=== PATIENT | male | born 1985 | race African-American/Black ===

== ENCOUNTER 2016-10-20 10:57 | Emergency (ER) | payer OTHER ==
[2016-10-20 14:36] LABS: MEAN CORPUSCULAR HEMOGLOBIN 29.6 pg (27.0-33.0); MEAN CORPUSCULAR HGB CONC 33.2 g/dl (32.0-36.5); MEAN CORPUSCULAR VOLUME 89.3 fl (80.0-96.0); RED CELL DISTRIBUTION WIDTH 13.7 % (11.5-14.5); WHITE BLOOD COUNT 7.7 K/mm3 (4.0-10.0)
[2016-10-20 14:56] LABS: ALBUMIN 3.9 GM/DL (3.2-5.2); ALBUMIN/GLOBULIN RATIO 1.11 (1.00-1.93); ALKALINE PHOSPHATASE 72 U/L (45-117); ALT/SGPT 25 U/L (12-78); ANION GAP 12 MEQ/L (8-16); AST/SGOT 19 U/L (15-37); BILIRUBIN,DIRECT 0.2 MG/DL (0.0-0.2); BILIRUBIN,TOTAL 0.5 MG/DL (0.2-1.0); BLOOD UREA NITROGEN 11 MG/DL (7-18); CALCIUM LEVEL 8.7 MG/DL (8.5-10.1); CARBON DIOXIDE LEVEL 28 MEQ/L (21-32); CHLORIDE LEVEL 102 MEQ/L (98-107); CREATININE FOR GFR 0.93 MG/DL (0.70-1.30); GLOMERULAR FILTRATION RATE > 60.0 (>60); GLUCOSE, FASTING 78 MG/DL (70-105); POTASSIUM SERUM 3.8 MEQ/L (3.5-5.1); SODIUM LEVEL 142 MEQ/L (136-145); TOTAL PROTEIN 7.4 GM/DL (6.4-8.2)
[2016-10-20 15:44] LABS: AMPHETAMINES LEVEL URINE NEGATIVE (NEGATIVE); BENZODIAZEPINES URINE POSITIVE (NEGATIVE); COCAINE METABOLITE URINE NEGATIVE (NEGATIVE); CONTROL LINE INT CTR LINE PRESENT; METHADONE URINE NEGATIVE (NEGATIVE); OPIATES URINE NEGATIVE (NEGATIVE); TRICYCLIC ANTIDEPRESS URINE NEGATIVE (NEGATIVE)
--- NOTE | 2016-10-20 17:04 | EDDOCDS ---
Nurse's Notes [facility] Name: Issac Dial Age: 31 yrs Sex: Male : 1985 Arrival Date: 10/20/2016 Time: 10:57 Bed 3 Private MD: CONCEPCIÓN Campbell Diagnosis: Adjustment disorder with anxiety Presentation: 10/20 11:01 Presenting complaint: Patient states: Panic attacks more frequent recently. Mental mlb1 Health Triage Level: Level 1- Pt displays no suicidal or homicidal ideations and does not appear to be a danger to self or others. Adult Sepsis Screening: The patient does not have new or worsening altered mentation. Patient's respiratory rate is less than 22. Systolic blood pressure is greater than 100. Patient has a qSOFA score of 0- Negative Sepsis Screen. Suicide/Homicide risk assessment- The patient reports that he/she has been admitted to an inpatient mental health facility in the last 30 days. The patient reports that he/she does not have a recent or current history of substance abuse. The patient reports that he/she has no prior history of suicide attempt and/or organized plan. The patient reports that he/she has experienced a significant life altering event in the last 30 days. The patient reports that he/she has adequate social support. 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 Transition of care: patient was not received from another setting of care. 11:01 Acuity: JULY Level 3 mlb1 11:01 Method Of Arrival: Walkin/Carried/Asstd mlb1 Triage Assessment: 11:06 General: Appears in no apparent distress, Behavior is appropriate for age, cooperative. mlb1 Pain: Denies pain. HIV screening NA for this visit Offered previously. Historical: - Allergies: no known allergies; - Home Meds: 1. Abilify 5 mg Oral tab 1 tab once daily (Last dose: 10/20/2016 03:00) 2. lorazepam 1 mg Oral tab 1 tab every 6 hours as needed, pt reports took 2 this AM (Last dose: 10/20/2016 09:40) - PMHx: Panic Attacks; - PSHx: none; - The history from nurses notes was reviewed: and I agree with what is documented. - Social history: Smoking status: Patient states was never smoker of tobacco. No barriers to communication noted, The patient speaks fluent Slovenian, Speaks appropriately for age. - : The pt / caregiver states he / she is not on anticoagulants. Home medication list is obtained from the patient. - Hospitalizations: : No recent hospitalization is reported. - Exposure Risk Screening:: None identified. - Immunization history:: All immunizations up-to-date. - Family history: Not pertinent. - Social history:: the patient smokes cigarettes the patient drinks alcohol. Screenin:47 Screening information is obtained from the patient. Fall risk: No risks identified. mb9 Assistance ADL's: requires no assistance with activities of daily living. Abuse/DV Screen: The patient / caregiver reports he/she is: not in a situation that causes fear, pain or injury. Nutritional screening: No deficits noted. Advance Directives: There is no active DNR order. home support is adequate. Assessment: 11:37 General: Appears in no apparent distress, Behavior is cooperative. General: pt resting mb9 comfortably. pt's NCO at the bedside. pt denies SI/HI. . Respiratory: Airway is patent Respiratory effort is even, unlabored. 12:32 Reassessment: Patient appears in no apparent distress at this time. General: Appears in mb9 no apparent distress, Behavior is cooperative, pt's nco at the bedside. . 13:47 Reassessment: Patient appears in no apparent distress at this time. General: Appears in mb9 no apparent distress, Behavior is appropriate for age, cooperative. Respiratory: Airway is patent Respiratory effort is even, unlabored. 13:50 General: at this time pt's NCO at the bedside came to the desk and states, "He needs mb9 some help. He says he is overheating". pt appeared lethargic upon walking in the room. pt aroused with sternal rub. pt states, "I sat up to put on my shoes and I got real lightheaded and sweaty. after several minutes pt still appears lethargic. Dr Barros made aware. . Neurological: Level of Consciousness is lethargic, Oriented to person, place, Moves all extremities. Speech is normal, Facial symmetry appears normal, Pupils are PERRLA. 14:50 General: Appears in no apparent distress, comfortable, Behavior is appropriate for age, kc3 cooperative. Neurological: Level of Consciousness is awake, obeys commands, Oriented to person, place, time. Respiratory: Airway is patent Respiratory effort is even, unlabored. Derm: Skin is normal. 15:39 General: Appears in no apparent distress, comfortable, Behavior is appropriate for age, kc3 cooperative. Neurological: Level of Consciousness is awake, obeys commands, Oriented to person, place, time. Cardiovascular: Rhythm is sinus rhythm. Respiratory: Respiratory effort is even, unlabored. Derm: Skin is normal. 16:37 General: Appears in no apparent distress, comfortable, Behavior is appropriate for age, kc3 cooperative. Pain: Location: knees. Neurological: Level of Consciousness is awake, alert, obeys commands, Oriented to person, place, time. Cardiovascular: Rhythm is sinus rhythm. Respiratory: Airway is patent Respiratory effort is even, unlabored. Derm: Skin is normal. 16:59 General: Appears in no apparent distress, comfortable, Behavior is appropriate for age, kc3 cooperative. Pain: Location: knees. Neurological: Level of Consciousness is awake, alert, obeys commands, Oriented to person, place, time. Cardiovascular: Rhythm is sinus rhythm. Respiratory: Airway is patent Respiratory effort is even, unlabored. Derm: Skin is normal. Social Work Consult: 13:18 Social Work Note: Met pt at bedside regarding increase in panic attacks. Pt reports ml4 presenting to ED due to having 2 panic attacks while en-route to work. Admits his panic attacks are increasing and more intense due to working in a hostile work environment. He reports getting an Article 15 Sep, 2016 for "failure to report." States he's fighting the article 15 due to feeling the commander false documented. Pt is currently in tx with [facility]. He denies SI and HI, able to CFS. Referrals for outpt services was given at bedside and directed to follow up with to [facility] walk-in for further tx. Vital Signs: 10:59 BP 136 / 75; Pulse 108; Resp 20; Temp 98.7; Pulse Ox 100% ; Weight 86.18 kg; Height 6 elp ft. 0 in. (182.88 cm); Pain 0/10; 13:47 BP 119 / 58; Pulse 115; Resp 17; Temp 98.7; Pulse Ox 100% on R/A; mb9 13:50 BP 94 / 62 LA Supine (auto/reg); Pulse 77; Pulse Ox 98% ; mb9 13:51 BP 88 / 42 LA Sitting (auto/reg); Pulse 80; Pulse Ox 97% ; mb9 14:30 BP 116 / 67 (auto/); kc3 14:30 Pulse 80 MON; Pulse Ox 100% ; kc3 14:45 BP 116 / 65 (auto/); kc3 14:46 Pulse 83 MON; Pulse Ox 100% ; kc3 15:00 BP 121 / 68 (auto/); kc3 15:01 Pulse 81 MON; Pulse Ox 100% ; kc3 15:15 BP 122 / 67 (auto/); kc3 15:16 Pulse 82 MON; Pulse Ox 100% ; kc3 15:30 BP 135 / 86 (auto/); kc3 15:37 Pulse 88 MON; Pulse Ox 99% ; kc3 16:18 BP 126 / 78 LA Supine (auto/reg); Pulse 88 MON; Pulse Ox 100% ; mb9 16:19 BP 127 / 77 LA Sitting (auto/reg); Pulse 91 MON; Pulse Ox 100% ; mb9 16:20 BP 124 / 76 LA Standing (auto/reg); Pulse 89 MON; Pulse Ox 100% ; mb9 17:01 BP 136 / 85; Pulse 93; Resp 18; Temp 98.3(O); Pulse Ox 100% on R/A; kc3 10:59 Body Mass Index 25.77 (86.18 kg, 182.88 cm) elp 16:18 pt denies dizziness or lightheadedness. mb9 16:19 pt denies dizziness or lightheadedness. mb9 16:20 pt denies dizziness or lightheadedness. mb9 Vitals: 10:59 Log In Time: October 20, 2016 at 10:58. RN notified that patient meets Red Flag elp criteria. ED Course: 10:58 Patient visited by Roxanne Graham PCA. elp 10:58 Patient moved to Waiting elp 10:59 Shannan [facility] [place] is Private Physician. elp 11:00 Patient visited by Roxanne Graham PCA. elp 11:01 Patient visited by Adrian Jackson RN. mlb1 11:04 Triage Initiated mlb1 11:06 Patient visited by Adrian Jackson RN. mlb1 11:06 Patient moved to 31 mlb1 12:03 Hawk Barros MD is Attending Physician. pc 12:03 Patient visited by Hawk Barros MD. pc 13:08 Patient visited by Hawk Barros MD. pc 13:23 Behavioral Stefanie [facility] is Referral Physician. pc 13:31 PSA Outpatient Referrals was scanned into [employer] and attached to record. ml4 13:47 The patient / caregiver is instructed regarding the plan of care and ED course. Patient dean has correct armband on for positive identification. 13:47 No IV's were initiated during this patient's visit. No procedures done that require mb9 assistance. 13:58 Meghan Winn,RN is Primary Nurse. jlf 13:58 Patient moved to 3 jl 14:02 Patient visited by Patsy Reynoso, MECHANICS HANDYMAN. jlf 14:08 Patient visited by Jennifer Shannon, MECHANICS HANDYMAN. rs6 14:20 Inserted saline lock: 18 gauge in right antecubital area and blood collected. The kc3 patient tolerated the procedure well. 14:25 Acetaminophen Level Sent. kc3 14:25 Basic Metabolic Profile Sent. kc3 14:25 Complete Blood Count Sent. kc3 14:25 Ethyl Alcohol (ethanol) Sent. kc3 14:25 Liver Profile Sent. kc3 14:25 Salicylate Level Sent. kc3 14:26 Thyroid Stimulating Hormone Sent. kc3 14:34 Patient visited by Meghan Winn,ADALBERTO. kc3 15:03 Patient name changed from Issac\\S\\Pal\\S\\Dial Iii\\S\\ to Issac\\S\\Pal\\S\\Dial. EDMS 15:04 [facility] Agreement was scanned into [employer] and attached to record. lg 15:28 Drug Eval Toxicology ED Only Sent. nb2 15:31 Patient visited by Meghan Winn RN. kc3 16:06 Patient visited by Meghan Winn,ADALBERTO. kc3 16:37 Patient visited by Meghan Winn,ADALBERTO. kc3 16:45 Behavioral Stefanie [facility] is Referral Physician. pc 17:03 Discontinued IV lock intact, bleeding controlled, pressure dressing applied, No kc3 redness/swelling at site. Administered Medications: 14:25 Drug: NS 0.9% 1000 ml [sodium chloride 0.9 % intravenous solution] Route: IV; Rate: kc3 bolus; Site: right antecubital; Order Results: Lab Order: Acetaminophen Level; SPEC'M 10/20/16 14:24 Test: ACETAMINOPHEN LEVEL; Value: < 2.0; Range: 10.0-30.0; Abnormal: Below low normal; Units: UG/ML; Status: F Lab Order: Basic Metabolic Profile; [facility] 14[facility]24 Test: GLUCOSE, FASTING; Value: 78; Range: 70-105; Units: MG/DL; Status: F Test: BLOOD UREA NITROGEN; Value: 11; Range: 7-18; Units: MG/DL; Status: F Test: CREATININE FOR GFR; Value: 0.93; Range: 0.70-1.30; Units: MG/DL; Status: F Test: GLOMERULAR FILTRATION RATE; Value: > 60.0; Range: >60; Status: F Test: SODIUM LEVEL; Value: 142; Range: 136-145; Units: MEQ/L; Status: F Test: POTASSIUM SERUM; Value: 3.8; Range: 3.5-5.1; Units: MEQ/L; Status: F Test: CHLORIDE LEVEL; Value: 102; Range: 98-107; Units: MEQ/L; Status: F Test: CARBON DIOXIDE LEVEL; Value: 28; Range: 21-32; Units: MEQ/L; Status: F Test: ANION GAP; Value: 12; Range: 8-16; Units: MEQ/L; Status: F Test: CALCIUM LEVEL; Value: 8.7; Range: 8.5-10.1; Units: MG/DL; Status: F Test Note: ; Units are mL/min/1.73 m2 Chronic Kidney Disease Staging per NKF: Stage I & II GFR >=60 Normal to Mildly Decreased Stage III GFR 30-59 Moderately Decreased Stage IV GFR 15-29 Severely Decreased Stage V GFR <15 Very Little GFR Left ESRD GFR <15 on MANAGER COMBINATION Lab Order: Complete Blood Count; SPEC'10/20/16 14:24 Test: WHITE BLOOD COUNT; Value: 7.7; Range: 4.0-10.0; Units: K/mm3; Status: F Test: RED BLOOD COUNT; Value: 4.53; Range: 4.30-6.10; Units: M/mm3; Status: F Test: HEMOGLOBIN; Value: 13.4; Range: 14.0-18.0; Abnormal: Below low normal; Units: g/dl; Status: F Test: HEMATOCRIT; Value: 40.4; Range: 42.0-52.0; Abnormal: Below low normal; Units: %; Status: F Test: MEAN CORPUSCULAR VOLUME; Value: 89.3; Range: 80.0-96.0; Units: fl; Status: F Test: MEAN CORPUSCULAR HEMOGLOBIN; Value: 29.6; Range: 27.0-33.0; Units: pg; Status: F Test: MEAN CORPUSCULAR HGB CONC; Value: 33.2; Range: 32.0-36.5; Units: g/dl; Status: F Test: RED CELL DISTRIBUTION WIDTH; Value: 13.7; Range: 11.5-14.5; Units: %; Status: F Test: PLATELET COUNT, AUTOMATED; Value: 258; Range: 150-450; Units: k/mm3; Status: F Lab Order: Drug Eval Toxicology ED Only; SPEC'M 10/20/16 15:26 Test: AMPHETAMINES LEVEL URINE; Value: NEGATIVE; Range: NEGATIVE; Status: F Test: BARBITURATES URINE; Value: NEGATIVE; Range: NEGATIVE; Status: F Test: BENZODIAZEPINES URINE; Value: POSITIVE; Range: NEGATIVE; Abnormal: Above high normal; Status: F Test: CANNABINOIDS URINE; Value: NEGATIVE; Range: NEGATIVE; Status: F Test: COCAINE METABOLITE URINE; Value: NEGATIVE; Range: NEGATIVE; Status: F Test: METHADONE URINE; Value: NEGATIVE; Range: NEGATIVE; Status: F Test: OPIATES URINE; Value: NEGATIVE; Range: NEGATIVE; Status: F Test: TRICYCLIC ANTIDEPRESS URINE; Value: NEGATIVE; Range: NEGATIVE; Status: F Test Note: ; ALL PRESUMPTIVE POSITIVE FINDINGS ARE UNCONFIRMED NORMAL VALUES THRESHOLD IN NG/ML AMPHETAMINES 1000 METHAMPHETAMINES 1000 BARBITURATES 300 BENZODIAZEPINES 300 CANNABINOIDS (THC) 50 COCAINE METABOLITE 300 METHADONE 300 OPIATES 300 PHENCYCLIDINE 25 TRICYCLIC ANTIDEPRESSANTS 1000 RESULTS ARE FOR MEDICAL PURPOSES ONLY. ALL URINE SPECIMENS WILL BE SAVED FOR 3 DAYS. IF CONFIRMATION OF A PRESUMPTIVE POSTIVE SCREEN RESULT IS DESIRED, CALL CHEMISTRY ([phone]) AND REQUEST URINE TO BE SENT TO REFERENCE LAB. FOR A LIST OF CLOSELY RELATED COMPOUNDS PLEASE CALL THE LAB. Lab Order: Ethyl Alcohol (ethanol); SPEC'M 10/20/16 14:24 Test: ETHYL ALCOHOL (ETHANOL); Value: 0.012; Range: 0.000-0.010; Abnormal: Above high normal; Units: %; Status: F Lab Order: Liver Profile; SPEC'M 10/20/16 14:24 Test: AST/SGOT; Value: 19; Range: 15-37; Units: U/L; Status: F Test: ALT/SGPT; Value: 25; Range: 12-78; Units: U/L; Status: F Test: ALKALINE PHOSPHATASE; Value: 72; Range: 45-117; Units: U/L; Status: F Test: BILIRUBIN,TOTAL; Value: 0.5; Range: 0.2-1.0; Units: MG/DL; Status: F Test: BILIRUBIN,DIRECT; Value: 0.2; Range: 0.0-0.2; Units: MG/DL; Status: F Test: TOTAL PROTEIN; Value: 7.4; Range: 6.4-8.2; Units: GM/DL; Status: F Test: ALBUMIN; Value: 3.9; Range: 3.2-5.2; Units: GM/DL; Status: F Test: ALBUMIN/GLOBULIN RATIO; Value: 1.11; Range: 1.00-1.93; Status: F Lab Order: Salicylate Level; SPEC'M 10/20/16 14:24 Test: SALICYLATE LEVEL; Value: < 1.7; Range: 5.0-30.0; Abnormal: Below low normal; Units: MG/DL; Status: F Lab Order: Thyroid Stimulating Hormone; SPEC'M 10/20/16 14:24 Test: THYROID STIMULATING HORMONE; Value: 0.770; Range: 0.358-3.740; Units: uIU/ML; Status: F Outcome: 13:24 Discharge ordered by Provider. pc 13:47 Discharge Assessment: Patient awake, alert and oriented x 3. No cognitive and/or mb9 functional deficits noted. Patient verbalized understanding of disposition instructions. patient administered narcotics - no. The following High Risk Discharge criteria are identified: None. Discharged to home ambulatory. Condition: good Condition: stable Condition: improved. Discharge instructions given to patient, Instructed on discharge instructions, follow up and referral plans. medication usage, Demonstrated understanding of instructions, medications, 16:45 Discharge ordered by Provider. pc 17:02 Discharge Assessment: Patient awake, alert and oriented x 3. No cognitive and/or kc3 functional deficits noted. Patient verbalized understanding of disposition instructions. patient administered narcotics - no. The following High Risk Discharge criteria are identified: None. Discharged to home ambulatory. Condition: stable. Discharge instructions given to patient, Instructed on discharge instructions, follow up and referral plans. Demonstrated understanding of instructions, Pt was receptive of discharge instructions/ teaching. No special radiology studies were completed. Property :Personal belongings accompany Pt. 17:03 Patient left the ED. kc3 Signatures: Dispatcher [employer] EDMS Hawk Barros MD MD pc Ganter, LoriLee, Reg Reg lg Manuel, Adrian Huang, RN RN mlb1 Merary De La Fuente, PSA PSA ml4 Roxanne Graham, MECHANICS HANDYMAN MECHANICS HANDYMAN elp Patsy Reynoso, MECHANICS HANDYMAN MECHANICS HANDYMAN edilsonf Adrian Vega,RN RN mb9 Jennifer Shannon, MECHANICS HANDYMAN MECHANICS HANDYMAN rs6 Meghan Winn,RN RN kc3 Luciana Gambino2 Corrections: (The following items were deleted from the chart) 15:38 11:05 Home Meds: Abilify 5 mg Oral tab 1 tab once daily; mlb1 kc3 15:38 11:05 Home Meds: lorazepam 1 mg Oral tab 1 tab every 6 hours; as needed; mlb1 kc3 MTDD
--- NOTE | 2016-10-20 17:04 | EDDOCDS ---
Physician Documentation [facility] Name: Issac Dial Age: 31 yrs Sex: Male : 1985 Arrival Date: 10/20/2016 Time: 10:57 Bed 3 Private MD: CONCEPCIÓN Campbell Disposition: 10/20 13:20 Critical Care: Critical care not applicable. pc Disposition: 10/20/16 16:45 Discharged to Home/Self Care. Impression: Adjustment disorder with anxiety. - Condition is Stable. - Discharge Instructions: Adjustment Disorder. - Medication Reconciliation, Local Pharmacy Hours form. - Follow up: Porfirio Jaquez, Behavioral Health; When: Tomorrow; Reason: Recheck today's complaints, Continuance of care. - Problem is an acute exacerbation. - Symptoms have improved. HPI: 13:20 This 31 yrs old Male presents to ER via Walkin/Carried/Asstd with pc complaints of Anxiety. 13:20 The history is obtained from the patient. He is having trouble at work, [place], and pc is having panic attacks. He was sent here by his [facility] for evaluation. He follows with [facility] regularly. He no longer wishes to be in the . He denies any SI or HI. At their worst, the symptoms were moderate. In the emergency department, the symptoms have resolved. The patient has experienced similar episodes in the past, multiple times. The patient has been recently seen by a psychiatrist. Historical: - Allergies: no known allergies; - Home Meds: 1. Abilify 5 mg Oral tab 1 tab once daily (Last dose: 10/20/2016 03:00) 2. lorazepam 1 mg Oral tab 1 tab every 6 hours as needed, pt reports took 2 this AM (Last dose: 10/20/2016 09:40) - PMHx: Panic Attacks; - PSHx: none; - The history from nurses notes was reviewed: and I agree with what is documented. - Social history: Smoking status: Patient states was never smoker of tobacco. No barriers to communication noted, The patient speaks fluent French, Speaks appropriately for age. - : The pt / caregiver states he / she is not on anticoagulants. Home medication list is obtained from the patient. - Hospitalizations: : No recent hospitalization is reported. - Exposure Risk Screening:: None identified. - Immunization history:: All immunizations up-to-date. - Family history: Not pertinent. - Social history:: the patient smokes cigarettes the patient drinks alcohol. ROS: 13:20 All systems are negative except as listed. pc Exam: 13:20 General Appearance: no acute distress, alert. pc 13:20 EENT: normal eye inspection, ears, nose and throat normal, pharynx normal, mucous membranes moist 13:20 Neck: The exam reveals no acute abnormalities. ROM is normal and painless. No nuchal rigidity is noted.. 13:20 Respiratory: no respiratory distress, normal breath sounds. 13:20 CVS: regular pulse rate, regular rhythm, normal S1 and S2, no murmurs, strong peripheral pulses. 13:20 Extremities: The extremities have a grossly normal appearance. 13:20 Neuro: oriented x 3, cranial nerves normal as tested, no motor deficits, no sensory deficits, normal gait. 13:20 Psych: normal mood, affect is appropriate. 16:41 General Appearance: no acute distress, alert. pc 16:41 Neuro: oriented x 3, cranial nerves normal as tested, no motor deficits, no sensory deficits, normal gait. Vital Signs: 10:59 BP 136 / 75; Pulse 108; Resp 20; Temp 98.7; Pulse Ox 100% ; Weight 86.18 kg / 189.99 elp lbs; Height 6 ft. 0 in. (182.88 cm); Pain 0/10; 13:47 BP 119 / 58; Pulse 115; Resp 17; Temp 98.7; Pulse Ox 100% on R/A; mb9 13:50 BP 94 / 62 LA Supine (auto/reg); Pulse 77; Pulse Ox 98% ; mb9 13:51 BP 88 / 42 LA Sitting (auto/reg); Pulse 80; Pulse Ox 97% ; mb9 14:30 BP 116 / 67 (auto/); kc3 14:30 Pulse 80 MON; Pulse Ox 100% ; kc3 14:45 BP 116 / 65 (auto/); kc3 14:46 Pulse 83 MON; Pulse Ox 100% ; kc3 15:00 BP 121 / 68 (auto/); kc3 15:01 Pulse 81 MON; Pulse Ox 100% ; kc3 15:15 BP 122 / 67 (auto/); kc3 15:16 Pulse 82 MON; Pulse Ox 100% ; kc3 15:30 BP 135 / 86 (auto/); kc3 15:37 Pulse 88 MON; Pulse Ox 99% ; kc3 16:18 BP 126 / 78 LA Supine (auto/reg); Pulse 88 MON; Pulse Ox 100% ; mb9 16:19 BP 127 / 77 LA Sitting (auto/reg); Pulse 91 MON; Pulse Ox 100% ; mb9 16:20 BP 124 / 76 LA Standing (auto/reg); Pulse 89 MON; Pulse Ox 100% ; mb9 17:01 BP 136 / 85; Pulse 93; Resp 18; Temp 98.3(O); Pulse Ox 100% on R/A; kc3 10:59 Body Mass Index 25.77 (86.18 kg, 182.88 cm) elp 16:18 pt denies dizziness or lightheadedness. mb9 16:19 pt denies dizziness or lightheadedness. mb9 16:20 pt denies dizziness or lightheadedness. mb9 MDM: 11:37 REGULAR+DIET ordered. EDMS 12:20 Financial registration complete. lg 13:20 Differential Diagnosis: anxiety, panic attacks, adjustment disorder. Plan: PFS eval. pc Data reviewed: old medical records, vital signs, nurses notes. Test interpretation: none. The patient has been re-examined and re-evaluated. The clinical presentation did not require any ED treatment or interventions. Other consultation: The ED casino worker was notified and will evaluate the patient. 13:20 Disposition: The historical points, examination findings, and any diagnostic results pc supporting the provided diagnosis, were discussed with the patient or legal guardian. The need for outpatient follow up with the provider listed on their discharge instructions was discussed. They were encouraged to return to [facility], or the nearest ED, if symptoms worsen/persist, or for any other questions/concerns. 13:31 PSA Outpatient Referrals was scanned into [employer] and attached to record. ml4 13:59 ED course: He complained of not feeling well after his discharge vitals were taken. The pc RN found him to be lethargic, hypotensive with a SBP of 88. He is found to be diaphoretic, able to converse. He denies any chest pain, abdominal pain, n/v, fevers or chills. She denies any drug ingestion. 14:05 Direct Support Professional/Pulse Ox/q 15 min VS ordered. pc 14:05 Confirm accurate psychiatric medication list and times of last dosage ordered. pc 14:05 Detain Pt Until Medically/PFS Cleared ordered. pc 14:05 IV Saline Lock ordered. pc 14:05 NS 0.9% 1000 ml IV at bolus once ordered. pc 14:05 Acetaminophen Level Ordered. EDMS 14:05 Basic Metabolic Profile Ordered. EDMS 14:05 Complete Blood Count Ordered. EDMS 14:05 Drug Eval Toxicology ED Only Ordered. EDMS 14:05 Ethyl Alcohol (ethanol) Ordered. EDMS 14:06 Liver Profile Ordered. EDMS 14:06 Salicylate Level Ordered. EDMS 14:06 Thyroid Stimulating Hormone Ordered. EDMS 14:06 ECG WITH READING ER PHYS+CARDIAG ordered. EDMS 14:16 Test interpretation: EKG. pc 15:04 [facility] [place] Payment Agreement was scanned into [employer] and attached to record. lg 15:44 Acetaminophen Level Reviewed. pc 15:44 Complete Blood Count Reviewed. pc 15:44 Ethyl Alcohol (ethanol) Reviewed. pc 15:44 Salicylate Level Reviewed. pc 15:44 Basic Metabolic Profile Reviewed. pc 15:44 Liver Profile Reviewed. pc 15:44 Thyroid Stimulating Hormone Reviewed. pc 15:46 Drug Eval Toxicology ED Only Reviewed. pc 16:41 ED course: He is at baseline at this time. His alcohol level was returned at 0.012, 3.5 pc hours after arrival, and 8 hours after arriving at work. He admits to a "few [place]ry [place]" last night, but with extrapolation, his level at 6am would have been 0.172 to 0.252. He does not admit to his alcohol intake and blames his medications. 16:41 Disposition: The historical points, examination findings, and any diagnostic results pc supporting the provided diagnosis, were discussed with the patient or legal guardian. The need for outpatient follow up with the provider listed on their discharge instructions was discussed. They were encouraged to return to [facility], or the nearest ED, if symptoms worsen/persist, or for any other questions/concerns. EC:16 Rate is 77 beats/min. Rhythm is regular, Normal Sinus Rhythm. QRS [place] is Normal. [place] pc interval is normal. QRS interval is normal. QT interval is normal. No Q waves. T waves are Normal. No ST changes noted. Clinical impression: Normal Sinus Rhythm. Administered Medications: 14:25 Drug: NS 0.9% 1000 ml [sodium chloride 0.9 % intravenous solution] Route: IV; Rate: kc3 bolus; Site: right antecubital; Signatures: Dispatcher [employer] EDHawk Anderson MD MD pc Ganter, LoriLee, Wild Reg lg Adrian Jackson RN RN mlb1 Leisa, Merary, PSA PSA ml4 Meghan Winn,RN RN kc3 The chart was reviewed and I authenticate all verbal orders and agree with the evaluation and treatment provided.Corrections: (The following items were deleted from the chart) 15:38 11:05 Home Meds: Abilify 5 mg Oral tab 1 tab once daily; mlb1 kc3 15:38 11:05 Home Meds: lorazepam 1 mg Oral tab 1 tab every 6 hours; as needed; mlb1 kc3 Attachments: 15:04 [facility] Payment Agreement lg MTDD
--- NOTE | 2016-10-21 08:29 | ECGEPIP ---
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
--- NOTE | 2016-10-22 18:04 | EDDOCDS ---
Physician Documentation [facility] Name: Issac Dial Age: 31 yrs Sex: Male : 1985 Arrival Date: 10/20/2016 Time: 10:57 Bed 3 Private MD: CONCEPCIÓN Capmbell Disposition: 10/20 13:20 Critical Care: Critical care not applicable. pc Disposition: 10/20/16 16:45 Discharged to Home/Self Care. Impression: Adjustment disorder with anxiety. - Condition is Stable. - Discharge Instructions: Adjustment Disorder. - Medication Reconciliation, Local Pharmacy Hours form. - Follow up: Porfirio Jaquez, Behavioral Health; When: Tomorrow; Reason: Recheck today's complaints, Continuance of care. - Problem is an acute exacerbation. - Symptoms have improved. HPI: 13:20 This 31 yrs old Male presents to ER via Walkin/Carried/Asstd with pc complaints of Anxiety. 13:20 The history is obtained from the patient. He is having trouble at work, [place], and pc is having panic attacks. He was sent here by his [facility] for evaluation. He follows with [facility] regularly. He no longer wishes to be in the . He denies any SI or HI. At their worst, the symptoms were moderate. In the emergency department, the symptoms have resolved. The patient has experienced similar episodes in the past, multiple times. The patient has been recently seen by a psychiatrist. Historical: - Allergies: no known allergies; - Home Meds: 1. Abilify 5 mg Oral tab 1 tab once daily (Last dose: 10/20/2016 03:00) 2. lorazepam 1 mg Oral tab 1 tab every 6 hours as needed, pt reports took 2 this AM (Last dose: 10/20/2016 09:40) - PMHx: Panic Attacks; - PSHx: none; - The history from nurses notes was reviewed: and I agree with what is documented. - Social history: Smoking status: Patient states was never smoker of tobacco. No barriers to communication noted, The patient speaks fluent Senegalese, Speaks appropriately for age. - : The pt / caregiver states he / she is not on anticoagulants. Home medication list is obtained from the patient. - Hospitalizations: : No recent hospitalization is reported. - Exposure Risk Screening:: None identified. - Immunization history:: All immunizations up-to-date. - Family history: Not pertinent. - Social history:: the patient smokes cigarettes the patient drinks alcohol. ROS: 13:20 All systems are negative except as listed. pc Exam: 13:20 General Appearance: no acute distress, alert. pc 13:20 EENT: normal eye inspection, ears, nose and throat normal, pharynx normal, mucous membranes moist 13:20 Neck: The exam reveals no acute abnormalities. ROM is normal and painless. No nuchal rigidity is noted.. 13:20 Respiratory: no respiratory distress, normal breath sounds. 13:20 CVS: regular pulse rate, regular rhythm, normal S1 and S2, no murmurs, strong peripheral pulses. 13:20 Extremities: The extremities have a grossly normal appearance. 13:20 Neuro: oriented x 3, cranial nerves normal as tested, no motor deficits, no sensory deficits, normal gait. 13:20 Psych: normal mood, affect is appropriate. 16:41 General Appearance: no acute distress, alert. pc 16:41 Neuro: oriented x 3, cranial nerves normal as tested, no motor deficits, no sensory deficits, normal gait. Vital Signs: 10:59 BP 136 / 75; Pulse 108; Resp 20; Temp 98.7; Pulse Ox 100% ; Weight 86.18 kg / 189.99 elp lbs; Height 6 ft. 0 in. (182.88 cm); Pain 0/10; 13:47 BP 119 / 58; Pulse 115; Resp 17; Temp 98.7; Pulse Ox 100% on R/A; mb9 13:50 BP 94 / 62 LA Supine (auto/reg); Pulse 77; Pulse Ox 98% ; mb9 13:51 BP 88 / 42 LA Sitting (auto/reg); Pulse 80; Pulse Ox 97% ; mb9 14:30 BP 116 / 67 (auto/); kc3 14:30 Pulse 80 MON; Pulse Ox 100% ; kc3 14:45 BP 116 / 65 (auto/); kc3 14:46 Pulse 83 MON; Pulse Ox 100% ; kc3 15:00 BP 121 / 68 (auto/); kc3 15:01 Pulse 81 MON; Pulse Ox 100% ; kc3 15:15 BP 122 / 67 (auto/); kc3 15:16 Pulse 82 MON; Pulse Ox 100% ; kc3 15:30 BP 135 / 86 (auto/); kc3 15:37 Pulse 88 MON; Pulse Ox 99% ; kc3 16:18 BP 126 / 78 LA Supine (auto/reg); Pulse 88 MON; Pulse Ox 100% ; mb9 16:19 BP 127 / 77 LA Sitting (auto/reg); Pulse 91 MON; Pulse Ox 100% ; mb9 16:20 BP 124 / 76 LA Standing (auto/reg); Pulse 89 MON; Pulse Ox 100% ; mb9 17:01 BP 136 / 85; Pulse 93; Resp 18; Temp 98.3(O); Pulse Ox 100% on R/A; kc3 10:59 Body Mass Index 25.77 (86.18 kg, 182.88 cm) elp 16:18 pt denies dizziness or lightheadedness. mb9 16:19 pt denies dizziness or lightheadedness. mb9 16:20 pt denies dizziness or lightheadedness. mb9 MDM: 11:37 REGULAR+DIET ordered. EDMS 12:20 Financial registration complete. lg 13:20 Differential Diagnosis: anxiety, panic attacks, adjustment disorder. Plan: PFS eval. pc Data reviewed: old medical records, vital signs, nurses notes. Test interpretation: none. The patient has been re-examined and re-evaluated. The clinical presentation did not require any ED treatment or interventions. Other consultation: The ED cleaner touch up worker was notified and will evaluate the patient. 13:20 Disposition: The historical points, examination findings, and any diagnostic results pc supporting the provided diagnosis, were discussed with the patient or legal guardian. The need for outpatient follow up with the provider listed on their discharge instructions was discussed. They were encouraged to return to [facility], or the nearest ED, if symptoms worsen/persist, or for any other questions/concerns. 13:31 PSA Outpatient Referrals was scanned into [employer] and attached to record. ml4 13:59 ED course: He complained of not feeling well after his discharge vitals were taken. The pc RN found him to be lethargic, hypotensive with a SBP of 88. He is found to be diaphoretic, able to converse. He denies any chest pain, abdominal pain, n/v, fevers or chills. She denies any drug ingestion. 14:05 Pantograph Setter/Pulse Ox/q 15 min VS ordered. pc 14:05 Confirm accurate psychiatric medication list and times of last dosage ordered. pc 14:05 Detain Pt Until Medically/PFS Cleared ordered. pc 14:05 IV Saline Lock ordered. pc 14:05 NS 0.9% 1000 ml IV at bolus once ordered. pc 14:05 Acetaminophen Level Ordered. EDMS 14:05 Basic Metabolic Profile Ordered. EDMS 14:05 Complete Blood Count Ordered. EDMS 14:05 Drug Eval Toxicology ED Only Ordered. EDMS 14:05 Ethyl Alcohol (ethanol) Ordered. EDMS 14:06 Liver Profile Ordered. EDMS 14:06 Salicylate Level Ordered. EDMS 14:06 Thyroid Stimulating Hormone Ordered. EDMS 14:06 ECG WITH READING ER PHYS+CARDIAG ordered. EDMS 14:16 Test interpretation: EKG. pc 15:04 [facility] Payment Agreement was scanned into [employer] and attached to record. lg 15:44 Acetaminophen Level Reviewed. pc 15:44 Complete Blood Count Reviewed. pc 15:44 Ethyl Alcohol (ethanol) Reviewed. pc 15:44 Salicylate Level Reviewed. pc 15:44 Basic Metabolic Profile Reviewed. pc 15:44 Liver Profile Reviewed. pc 15:44 Thyroid Stimulating Hormone Reviewed. pc 15:46 Drug Eval Toxicology ED Only Reviewed. pc 16:41 ED course: He is at baseline at this time. His alcohol level was returned at 0.012, 3.5 pc hours after arrival, and 8 hours after arriving at work. He admits to a "few Angry [place]" last night, but with extrapolation, his level at 6am would have been 0.172 to 0.252. He does not admit to his alcohol intake and blames his medications. 16:41 Disposition: The historical points, examination findings, and any diagnostic results pc supporting the provided diagnosis, were discussed with the patient or legal guardian. The need for outpatient follow up with the provider listed on their discharge instructions was discussed. They were encouraged to return to [facility], or the nearest ED, if symptoms worsen/persist, or for any other questions/concerns. 17:04 Fingerstick Blood Sugar Ordered. EDMS 10/21 11:25 ECG/EKG was scanned into [employer] and attached to record. gb EC/18 14:16 Rate is 77 beats/min. Rhythm is regular, Normal Sinus Rhythm. QRS [place] is Normal. [place] pc interval is normal. QRS interval is normal. QT interval is normal. No Q waves. T waves are Normal. No ST changes noted. Clinical impression: Normal Sinus Rhythm. Administered Medications: 14:25 Drug: NS 0.9% 1000 ml [sodium chloride 0.9 % intravenous solution] Route: IV; Rate: kc3 bolus; Site: right antecubital; Signatures: Dispatcher [employer] EDMS Hawk Barros MD MD pc Barnhardt, Gloria, Reg Reg gb Theodora Goins, Reg Reg lg Adrian Jackson RN RN mlb1 Merary De La Fuente, PSA PSA ml4 Meghan Winn,ADALBERTO RN kc3 The chart was reviewed and I authenticate all verbal orders and agree with the evaluation and treatment provided.Corrections: (The following items were deleted from the chart) 15:38 11:05 Home Meds: Abilify 5 mg Oral tab 1 tab once daily; mlb1 kc3 15:38 11:05 Home Meds: lorazepam 1 mg Oral tab 1 tab every 6 hours; as needed; mlb1 kc3 Attachments: 15:04 [facility] Payment Agreement 10/21 11:25 ECG/EKG Chart Complete [facility]
--- NOTE | 2016-10-22 18:04 | EDDOCDS ---
Nurse's Notes [facility] Name: Vignesh Morin Age: 31 yrs Sex: Male : 1985 Arrival Date: 10/20/2016 Time: 10:57 Bed 3 Private MD: CONCEPCIÓN Campbell Diagnosis: Adjustment disorder with anxiety Presentation: 10/20 11:01 Presenting complaint: Patient states: Panic attacks more frequent recently. Mental mlb1 Health Triage Level: Level 1- Pt displays no suicidal or homicidal ideations and does not appear to be a danger to self or others. Adult Sepsis Screening: The patient does not have new or worsening altered mentation. Patient's respiratory rate is less than 22. Systolic blood pressure is greater than 100. Patient has a qSOFA score of 0- Negative Sepsis Screen. Suicide/Homicide risk assessment- The patient reports that he/she has been admitted to an inpatient mental health facility in the last 30 days. The patient reports that he/she does not have a recent or current history of substance abuse. The patient reports that he/she has no prior history of suicide attempt and/or organized plan. The patient reports that he/she has experienced a significant life altering event in the last 30 days. The patient reports that he/she has adequate social support. 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 Transition of care: patient was not received from another setting of care. 11:01 Acuity: JULY Level 3 mlb1 11:01 Method Of Arrival: Walkin/Carried/Asstd mlb1 Triage Assessment: 11:06 General: Appears in no apparent distress, Behavior is appropriate for age, cooperative. mlb1 Pain: Denies pain. HIV screening NA for this visit Offered previously. Historical: - Allergies: no known allergies; - Home Meds: 1. Abilify 5 mg Oral tab 1 tab once daily (Last dose: 10/20/2016 03:00) 2. lorazepam 1 mg Oral tab 1 tab every 6 hours as needed, pt reports took 2 this AM (Last dose: 10/20/2016 09:40) - PMHx: Panic Attacks; - PSHx: none; - The history from nurses notes was reviewed: and I agree with what is documented. - Social history: Smoking status: Patient states was never smoker of tobacco. No barriers to communication noted, The patient speaks fluent Kinyarwanda, Speaks appropriately for age. - : The pt / caregiver states he / she is not on anticoagulants. Home medication list is obtained from the patient. - Hospitalizations: : No recent hospitalization is reported. - Exposure Risk Screening:: None identified. - Immunization history:: All immunizations up-to-date. - Family history: Not pertinent. - Social history:: the patient smokes cigarettes the patient drinks alcohol. Screenin:47 Screening information is obtained from the patient. Fall risk: No risks identified. mb9 Assistance ADL's: requires no assistance with activities of daily living. Abuse/DV Screen: The patient / caregiver reports he/she is: not in a situation that causes fear, pain or injury. Nutritional screening: No deficits noted. Advance Directives: There is no active DNR order. home support is adequate. Assessment: 11:37 General: Appears in no apparent distress, Behavior is cooperative. General: pt resting mb9 comfortably. pt's NCO at the bedside. pt denies SI/HI. . Respiratory: Airway is patent Respiratory effort is even, unlabored. 12:32 Reassessment: Patient appears in no apparent distress at this time. General: Appears in mb9 no apparent distress, Behavior is cooperative, pt's nco at the bedside. . 13:47 Reassessment: Patient appears in no apparent distress at this time. General: Appears in mb9 no apparent distress, Behavior is appropriate for age, cooperative. Respiratory: Airway is patent Respiratory effort is even, unlabored. 13:50 General: at this time pt's NCO at the bedside came to the desk and states, "He needs mb9 some help. He says he is overheating". pt appeared lethargic upon walking in the room. pt aroused with sternal rub. pt states, "I sat up to put on my shoes and I got real lightheaded and sweaty. after several minutes pt still appears lethargic. Dr Barros made aware. . Neurological: Level of Consciousness is lethargic, Oriented to person, place, Moves all extremities. Speech is normal, Facial symmetry appears normal, Pupils are PERRLA. 14:50 General: Appears in no apparent distress, comfortable, Behavior is appropriate for age, kc3 cooperative. Neurological: Level of Consciousness is awake, obeys commands, Oriented to person, place, time. Respiratory: Airway is patent Respiratory effort is even, unlabored. Derm: Skin is normal. 15:39 General: Appears in no apparent distress, comfortable, Behavior is appropriate for age, kc3 cooperative. Neurological: Level of Consciousness is awake, obeys commands, Oriented to person, place, time. Cardiovascular: Rhythm is sinus rhythm. Respiratory: Respiratory effort is even, unlabored. Derm: Skin is normal. 16:37 General: Appears in no apparent distress, comfortable, Behavior is appropriate for age, kc3 cooperative. Pain: Location: knees. Neurological: Level of Consciousness is awake, alert, obeys commands, Oriented to person, place, time. Cardiovascular: Rhythm is sinus rhythm. Respiratory: Airway is patent Respiratory effort is even, unlabored. Derm: Skin is normal. 16:59 General: Appears in no apparent distress, comfortable, Behavior is appropriate for age, kc3 cooperative. Pain: Location: knees. Neurological: Level of Consciousness is awake, alert, obeys commands, Oriented to person, place, time. Cardiovascular: Rhythm is sinus rhythm. Respiratory: Airway is patent Respiratory effort is even, unlabored. Derm: Skin is normal. Social Work Consult: 13:18 Social Work Note: Met pt at bedside regarding increase in panic attacks. Pt reports ml4 presenting to ED due to having 2 panic attacks while en-route to work. Admits his panic attacks are increasing and more intense due to working in a hostile work environment. He reports getting an Article 15 Sep, 2016 for "failure to report." States he's fighting the article 15 due to feeling the commander false documented. Pt is currently in tx with [facility]. He denies SI and HI, able to CFS. Referrals for outpt services was given at bedside and directed to follow up with to [facility] walk-in for further tx. Vital Signs: 10:59 BP 136 / 75; Pulse 108; Resp 20; Temp 98.7; Pulse Ox 100% ; Weight 86.18 kg; Height 6 elp ft. 0 in. (182.88 cm); Pain 0/10; 13:47 BP 119 / 58; Pulse 115; Resp 17; Temp 98.7; Pulse Ox 100% on R/A; mb9 13:50 BP 94 / 62 LA Supine (auto/reg); Pulse 77; Pulse Ox 98% ; mb9 13:51 BP 88 / 42 LA Sitting (auto/reg); Pulse 80; Pulse Ox 97% ; mb9 14:30 BP 116 / 67 (auto/); kc3 14:30 Pulse 80 MON; Pulse Ox 100% ; kc3 14:45 BP 116 / 65 (auto/); kc3 14:46 Pulse 83 MON; Pulse Ox 100% ; kc3 15:00 BP 121 / 68 (auto/); kc3 15:01 Pulse 81 MON; Pulse Ox 100% ; kc3 15:15 BP 122 / 67 (auto/); kc3 15:16 Pulse 82 MON; Pulse Ox 100% ; kc3 15:30 BP 135 / 86 (auto/); kc3 15:37 Pulse 88 MON; Pulse Ox 99% ; kc3 16:18 BP 126 / 78 LA Supine (auto/reg); Pulse 88 MON; Pulse Ox 100% ; mb9 16:19 BP 127 / 77 LA Sitting (auto/reg); Pulse 91 MON; Pulse Ox 100% ; mb9 16:20 BP 124 / 76 LA Standing (auto/reg); Pulse 89 MON; Pulse Ox 100% ; mb9 17:01 BP 136 / 85; Pulse 93; Resp 18; Temp 98.3(O); Pulse Ox 100% on R/A; kc3 10:59 Body Mass Index 25.77 (86.18 kg, 182.88 cm) elp 16:18 pt denies dizziness or lightheadedness. mb9 16:19 pt denies dizziness or lightheadedness. mb9 16:20 pt denies dizziness or lightheadedness. mb9 Vitals: 10:59 Log In Time: October 20, 2016 at 10:58. RN notified that patient meets Red Flag elp criteria. ED Course: 10:58 Patient visited by Roxanne Graham PCA. elp 10:58 Patient moved to Waiting elp 10:59 Shannan [facility] is Private Physician. elp 11:00 Patient visited by Roxanne Graham PCA. elp 11:01 Patient visited by Adrian Jackson RN. mlb1 11:04 Triage Initiated mlb1 11:06 Patient visited by Adrian Jackson RN. mlb1 11:06 Patient moved to 31 mlb1 12:03 Hawk Barros MD is Attending Physician. pc 12:03 Patient visited by Hawk Barros MD. pc 13:08 Patient visited by Hawk Barros MD. pc 13:23 [facility]al [facility] is Referral Physician. pc 13:31 PSA Outpatient Referrals was scanned into [employer] and attached to record. ml4 13:47 The patient / caregiver is instructed regarding the plan of care and ED course. Patient dean has correct armband on for positive identification. 13:47 No IV's were initiated during this patient's visit. No procedures done that require mb9 assistance. 13:58 Meghan Winn,RN is Primary Nurse. jlf 13:58 Patient moved to 3 jlf 14:02 Patient visited by Patsy Reynoso, RADIO DISPATCHER. jlf 14:08 Patient visited by Jennifer Shannon, RADIO DISPATCHER. rs6 14:20 Inserted saline lock: 18 gauge in right antecubital area and blood collected. The kc3 patient tolerated the procedure well. 14:25 Acetaminophen Level Sent. kc3 14:25 Basic Metabolic Profile Sent. kc3 14:25 Complete Blood Count Sent. kc3 14:25 Ethyl Alcohol (ethanol) Sent. kc3 14:25 Liver Profile Sent. kc3 14:25 Salicylate Level Sent. kc3 14:26 Thyroid Stimulating Hormone Sent. kc3 14:34 Patient visited by Meghan Winn,ADALBERTO. kc3 15:03 Patient name changed from Vignesh\\S\\Pal\\S\\Morin Iii\\S\\ to Vignesh\\S\\Pal\\S\\Morin. EDMS 15:04 [facility] Payment Agreement was scanned into [employer] and attached to record. lg 15:28 Drug Eval Toxicology ED Only Sent. nb2 15:31 Patient visited by Meghan Winn RN. kc3 16:06 Patient visited by Meghan Winn,ADALBERTO. kc3 16:37 Patient visited by Meghan Winn,ADALBERTO. kc3 16:45 Behavioral [facility] is Referral Physician. pc 17:03 Discontinued IV lock intact, bleeding controlled, pressure dressing applied, No kc3 redness/swelling at site. 10/21 09:01 EKG-ADULT Returned. EDMS 11:25 ECG/EKG was scanned into [employer] and attached to record. gb Administered Medications: 10/20 14:25 Drug: NS 0.9% 1000 ml [sodium chloride 0.9 % intravenous solution] Route: IV; Rate: kc3 bolus; Site: right antecubital; Order Results: Lab Order: Acetaminophen Level; SPEC'M 10/20/16 14:24 Test: ACETAMINOPHEN LEVEL; Value: < 2.0; Range: 10.0-30.0; Abnormal: Below low normal; Units: UG/ML; Status: F Lab Order: Basic Metabolic Profile; SPEC'M 10/20/16 14:24 Test: GLUCOSE, FASTING; Value: 78; Range: 70-105; Units: MG/DL; Status: F Test: BLOOD UREA NITROGEN; Value: 11; Range: 7-18; Units: MG/DL; Status: F Test: CREATININE FOR GFR; Value: 0.93; Range: 0.70-1.30; Units: MG/DL; Status: F Test: GLOMERULAR FILTRATION RATE; Value: > 60.0; Range: >60; Status: F Test: SODIUM LEVEL; Value: 142; Range: 136-145; Units: MEQ/L; Status: F Test: POTASSIUM SERUM; Value: 3.8; Range: 3.5-5.1; Units: MEQ/L; Status: F Test: CHLORIDE LEVEL; Value: 102; Range: 98-107; Units: MEQ/L; Status: F Test: CARBON DIOXIDE LEVEL; Value: 28; Range: 21-32; Units: MEQ/L; Status: F Test: ANION GAP; Value: 12; Range: 8-16; Units: MEQ/L; Status: F Test: CALCIUM LEVEL; Value: 8.7; Range: 8.5-10.1; Units: MG/DL; Status: F Test Note: ; Units are mL/min/1.73 m2 Chronic Kidney Disease Staging per NKF: Stage I & II GFR >=60 Normal to Mildly Decreased Stage III GFR 30-59 Moderately Decreased Stage IV GFR 15-29 Severely Decreased Stage V GFR <15 Very Little GFR Left ESRD GFR <15 on DRUG SAFETY PHYSICIAN Lab Order: Complete Blood Count; SPEC'M 10/20/16 14:24 Test: WHITE BLOOD COUNT; Value: 7.7; Range: 4.0-10.0; Units: K/mm3; Status: F Test: RED BLOOD COUNT; Value: 4.53; Range: 4.30-6.10; Units: M/mm3; Status: F Test: HEMOGLOBIN; Value: 13.4; Range: 14.0-18.0; Abnormal: Below low normal; Units: g/dl; Status: F Test: HEMATOCRIT; Value: 40.4; Range: 42.0-52.0; Abnormal: Below low normal; Units: %; Status: F Test: MEAN CORPUSCULAR VOLUME; Value: 89.3; Range: 80.0-96.0; Units: fl; Status: F Test: MEAN CORPUSCULAR HEMOGLOBIN; Value: 29.6; Range: 27.0-33.0; Units: pg; Status: F Test: MEAN CORPUSCULAR HGB CONC; Value: 33.2; Range: 32.0-36.5; Units: g/dl; Status: F Test: RED CELL DISTRIBUTION WIDTH; Value: 13.7; Range: 11.5-14.5; Units: %; Status: F Test: PLATELET COUNT, AUTOMATED; Value: 258; Range: 150-450; Units: k/mm3; Status: F Lab Order: Drug Eval Toxicology ED Only; SPEC'M 10/20/16 15:26 Test: AMPHETAMINES LEVEL URINE; Value: NEGATIVE; Range: NEGATIVE; Status: F Test: BARBITURATES URINE; Value: NEGATIVE; Range: NEGATIVE; Status: F Test: BENZODIAZEPINES URINE; Value: POSITIVE; Range: NEGATIVE; Abnormal: Above high normal; Status: F Test: CANNABINOIDS URINE; Value: NEGATIVE; Range: NEGATIVE; Status: F Test: COCAINE METABOLITE URINE; Value: NEGATIVE; Range: NEGATIVE; Status: F Test: METHADONE URINE; Value: NEGATIVE; Range: NEGATIVE; Status: F Test: OPIATES URINE; Value: NEGATIVE; Range: NEGATIVE; Status: F Test: TRICYCLIC ANTIDEPRESS URINE; Value: NEGATIVE; Range: NEGATIVE; Status: F Test Note: ; ALL PRESUMPTIVE POSITIVE FINDINGS ARE UNCONFIRMED NORMAL VALUES THRESHOLD IN NG/ML AMPHETAMINES 1000 METHAMPHETAMINES 1000 BARBITURATES 300 BENZODIAZEPINES 300 CANNABINOIDS (THC) 50 COCAINE METABOLITE 300 METHADONE 300 OPIATES 300 PHENCYCLIDINE 25 TRICYCLIC ANTIDEPRESSANTS 1000 RESULTS ARE FOR MEDICAL PURPOSES ONLY. ALL URINE SPECIMENS WILL BE SAVED FOR 3 DAYS. IF CONFIRMATION OF A PRESUMPTIVE POSTIVE SCREEN RESULT IS DESIRED, CALL CHEMISTRY ([phone]) AND REQUEST URINE TO BE SENT TO REFERENCE LAB. FOR A LIST OF CLOSELY RELATED COMPOUNDS PLEASE CALL THE LAB. Lab Order: Ethyl Alcohol (ethanol); SPEC'M 10/20/16 14:24 Test: ETHYL ALCOHOL (ETHANOL); Value: 0.012; Range: 0.000-0.010; Abnormal: Above high normal; Units: %; Status: F Lab Order: Liver Profile; SPEC'M 10/20/16 14:24 Test: AST/SGOT; Value: 19; Range: 15-37; Units: U/L; Status: F Test: ALT/SGPT; Value: 25; Range: 12-78; Units: U/L; Status: F Test: ALKALINE PHOSPHATASE; Value: 72; Range: 45-117; Units: U/L; Status: F Test: BILIRUBIN,TOTAL; Value: 0.5; Range: 0.2-1.0; Units: MG/DL; Status: F Test: BILIRUBIN,DIRECT; Value: 0.2; Range: 0.0-0.2; Units: MG/DL; Status: F Test: TOTAL PROTEIN; Value: 7.4; Range: 6.4-8.2; Units: GM/DL; Status: F Test: ALBUMIN; Value: 3.9; Range: 3.2-5.2; Units: GM/DL; Status: F Test: ALBUMIN/GLOBULIN RATIO; Value: 1.11; Range: 1.00-1.93; Status: F Lab Order: Salicylate Level; SPEC'M 10/20/16 14:24 Test: SALICYLATE LEVEL; Value: < 1.7; Range: 5.0-30.0; Abnormal: Below low normal; Units: MG/DL; Status: F Lab Order: Thyroid Stimulating Hormone; SPEC'M 10/20/16 14:24 Test: THYROID STIMULATING HORMONE; Value: 0.770; Range: 0.358-3.740; Units: uIU/ML; Status: F Lab Order: Fingerstick Blood Sugar; SPEC'M 10/20/16 14:13 Test: BEDSIDE GLUCOSE; Value: 80; Range: 70-105; Units: MG/DL; Status: F Radiology Order: EKG-ADULT Test: EKG-ADULT REASON FOR EXAMINATION: hypotension; Stationary ECG Study; [facility] - ED; ; Test Date: 2016-10-20; Pat Name: VIGNESH MORIN Department:; Room: -; 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 pc 13:47 Discharge Assessment: Patient awake, alert and oriented x 3. No cognitive and/or mb9 functional deficits noted. Patient verbalized understanding of disposition instructions. patient administered narcotics - no. The following High Risk Discharge criteria are identified: None. Discharged to home ambulatory. Condition: good Condition: stable Condition: improved. Discharge instructions given to patient, Instructed on discharge instructions, follow up and referral plans. medication usage, Demonstrated understanding of instructions, medications, 16:45 Discharge ordered by Provider. pc 17:02 Discharge Assessment: Patient awake, alert and oriented x 3. No cognitive and/or kc3 functional deficits noted. Patient verbalized understanding of disposition instructions. patient administered narcotics - no. The following High Risk Discharge criteria are identified: None. Discharged to home ambulatory. Condition: stable. Discharge instructions given to patient, Instructed on discharge instructions, follow up and referral plans. Demonstrated understanding of instructions, Pt was receptive of discharge instructions/ teaching. No special radiology studies were completed. Property :Personal belongings accompany Pt. 17:03 Patient left the ED. kc3 Signatures: Dispatcher [employer] EDMS Hawk Barros MD MD pc Rosy Otoole, Reg Reg gb Theodora Goins, Reg Reg lg Adrian Jackson RN RN mlb1 Merary De La Fuente, PSA PSA ml4 Roxanne Graham, RADIO DISPATCHER RADIO DISPATCHER maytep Patsy Reynoso, RADIO DISPATCHER RADIO DISPATCHER Adrian Denny,RN RN mb9 Jennifer Shannon, RADIO DISPATCHER RADIO DISPATCHER rs6 Meghan Winn,RN RN kc3 Luciana Gambino2 Corrections: (The following items were deleted from the chart) 15:38 11:05 Home Meds: Abilify 5 mg Oral tab 1 tab once daily; mlb1 kc3 15:38 11:05 Home Meds: lorazepam 1 mg Oral tab 1 tab every 6 hours; as needed; mlb1 kc3 Chart Complete MTDD
--- NOTE | 2016-10-22 18:04 | EDDOCDS ---
Physician Documentation [facility] Name: Issac Dial Age: 31 yrs Sex: Male : 1985 Arrival Date: 10/20/2016 Time: 10:57 Bed 3 Private MD: CONCEPCIÓN Campbell Disposition: 10/20 13:20 Critical Care: Critical care not applicable. pc Disposition: 10/20/16 16:45 Discharged to Home/Self Care. Impression: Adjustment disorder with anxiety. - Condition is Stable. - Discharge Instructions: Adjustment Disorder. - Medication Reconciliation, Local Pharmacy Hours form. - Follow up: Porfirio Jaquez, Behavioral Health; When: Tomorrow; Reason: Recheck today's complaints, Continuance of care. - Problem is an acute exacerbation. - Symptoms have improved. HPI: 13:20 This 31 yrs old Male presents to ER via Walkin/Carried/Asstd with pc complaints of Anxiety. 13:20 The history is obtained from the patient. He is having trouble at work, [place], and pc is having panic attacks. He was sent here by his [facility] for evaluation. He follows with [facility] regularly. He no longer wishes to be in the . He denies any SI or HI. At their worst, the symptoms were moderate. In the emergency department, the symptoms have resolved. The patient has experienced similar episodes in the past, multiple times. The patient has been recently seen by a psychiatrist. Historical: - Allergies: no known allergies; - Home Meds: 1. Abilify 5 mg Oral tab 1 tab once daily (Last dose: 10/20/2016 03:00) 2. lorazepam 1 mg Oral tab 1 tab every 6 hours as needed, pt reports took 2 this AM (Last dose: 10/20/2016 09:40) - PMHx: Panic Attacks; - PSHx: none; - The history from nurses notes was reviewed: and I agree with what is documented. - Social history: Smoking status: Patient states was never smoker of tobacco. No barriers to communication noted, The patient speaks fluent [place], Speaks appropriately for age. - : The pt / caregiver states he / she is not on anticoagulants. Home medication list is obtained from the patient. - Hospitalizations: : No recent hospitalization is reported. - Exposure Risk Screening:: None identified. - Immunization history:: All immunizations up-to-date. - Family history: Not pertinent. - Social history:: the patient smokes cigarettes the patient drinks alcohol. ROS: 13:20 All systems are negative except as listed. pc Exam: 13:20 General Appearance: no acute distress, alert. pc 13:20 EENT: normal eye inspection, ears, nose and throat normal, pharynx normal, mucous membranes moist 13:20 Neck: The exam reveals no acute abnormalities. ROM is normal and painless. No nuchal rigidity is noted.. 13:20 Respiratory: no respiratory distress, normal breath sounds. 13:20 CVS: regular pulse rate, regular rhythm, normal S1 and S2, no murmurs, strong peripheral pulses. 13:20 Extremities: The extremities have a grossly normal appearance. 13:20 Neuro: oriented x 3, cranial nerves normal as tested, no motor deficits, no sensory deficits, normal gait. 13:20 Psych: normal mood, affect is appropriate. 16:41 General Appearance: no acute distress, alert. pc 16:41 Neuro: oriented x 3, cranial nerves normal as tested, no motor deficits, no sensory deficits, normal gait. Vital Signs: 10:59 BP 136 / 75; Pulse 108; Resp 20; Temp 98.7; Pulse Ox 100% ; Weight 86.18 kg / 189.99 elp lbs; Height 6 ft. 0 in. (182.88 cm); Pain 0/10; 13:47 BP 119 / 58; Pulse 115; Resp 17; Temp 98.7; Pulse Ox 100% on R/A; mb9 13:50 BP 94 / 62 LA Supine (auto/reg); Pulse 77; Pulse Ox 98% ; mb9 13:51 BP 88 / 42 LA Sitting (auto/reg); Pulse 80; Pulse Ox 97% ; mb9 14:30 BP 116 / 67 (auto/); kc3 14:30 Pulse 80 MON; Pulse Ox 100% ; kc3 14:45 BP 116 / 65 (auto/); kc3 14:46 Pulse 83 MON; Pulse Ox 100% ; kc3 15:00 BP 121 / 68 (auto/); kc3 15:01 Pulse 81 MON; Pulse Ox 100% ; kc3 15:15 BP 122 / 67 (auto/); kc3 15:16 Pulse 82 MON; Pulse Ox 100% ; kc3 15:30 BP 135 / 86 (auto/); kc3 15:37 Pulse 88 MON; Pulse Ox 99% ; kc3 16:18 BP 126 / 78 LA Supine (auto/reg); Pulse 88 MON; Pulse Ox 100% ; mb9 16:19 BP 127 / 77 LA Sitting (auto/reg); Pulse 91 MON; Pulse Ox 100% ; mb9 16:20 BP 124 / 76 LA Standing (auto/reg); Pulse 89 MON; Pulse Ox 100% ; mb9 17:01 BP 136 / 85; Pulse 93; Resp 18; Temp 98.3(O); Pulse Ox 100% on R/A; kc3 10:59 Body Mass Index 25.77 (86.18 kg, 182.88 cm) elp 16:18 pt denies dizziness or lightheadedness. mb9 16:19 pt denies dizziness or lightheadedness. mb9 16:20 pt denies dizziness or lightheadedness. mb9 MDM: 11:37 REGULAR+DIET ordered. EDMS 12:20 Financial registration complete. lg 13:20 Differential Diagnosis: anxiety, panic attacks, adjustment disorder. Plan: PFS eval. pc Data reviewed: old medical records, vital signs, nurses notes. Test interpretation: none. The patient has been re-examined and re-evaluated. The clinical presentation did not require any ED treatment or interventions. Other consultation: The ED drying can worker was notified and will evaluate the patient. 13:20 Disposition: The historical points, examination findings, and any diagnostic results pc supporting the provided diagnosis, were discussed with the patient or legal guardian. The need for outpatient follow up with the provider listed on their discharge instructions was discussed. They were encouraged to return to [facility], or the nearest ED, if symptoms worsen/persist, or for any other questions/concerns. 13:31 PSA Outpatient Referrals was scanned into [employer] and attached to record. ml4 13:59 ED course: He complained of not feeling well after his discharge vitals were taken. The pc RN found him to be lethargic, hypotensive with a SBP of 88. He is found to be diaphoretic, able to converse. He denies any chest pain, abdominal pain, n/v, fevers or chills. She denies any drug ingestion. 14:05 Brand Inspector/Pulse Ox/q 15 min VS ordered. pc 14:05 Confirm accurate psychiatric medication list and times of last dosage ordered. pc 14:05 Detain Pt Until Medically/PFS Cleared ordered. pc 14:05 IV Saline Lock ordered. pc 14:05 NS 0.9% 1000 ml IV at bolus once ordered. pc 14:05 Acetaminophen Level Ordered. EDMS 14:05 Basic Metabolic Profile Ordered. EDMS 14:05 Complete Blood Count Ordered. EDMS 14:05 Drug Eval Toxicology ED Only Ordered. EDMS 14:05 Ethyl Alcohol (ethanol) Ordered. EDMS 14:06 Liver Profile Ordered. EDMS 14:06 Salicylate Level Ordered. EDMS 14:06 Thyroid Stimulating Hormone Ordered. EDMS 14:06 ECG WITH READING ER PHYS+CARDIAG ordered. EDMS 14:16 Test interpretation: EKG. pc 15:04 [facility] [facility] [place] was [place] into [employer] and attached to record. lg 15:44 Acetaminophen Level Reviewed. pc 15:44 Complete Blood Count Reviewed. pc 15:44 Ethyl Alcohol (ethanol) Reviewed. pc 15:44 Salicylate Level Reviewed. pc 15:44 Basic Metabolic Profile Reviewed. pc 15:44 Liver Profile Reviewed. pc 15:44 Thyroid Stimulating Hormone Reviewed. pc 15:46 Drug Eval Toxicology ED Only Reviewed. pc 16:41 ED course: He is at baseline at this time. His alcohol level was returned at 0.012, 3.5 pc hours after arrival, and 8 hours after arriving at work. He admits to a "few [place]" last night, but with extrapolation, his level at 6am would have been 0.172 to 0.252. He does not admit to his alcohol intake and blames his medications. 16:41 Disposition: The historical points, examination findings, and any diagnostic results pc supporting the provided diagnosis, were discussed with the patient or legal guardian. The need for outpatient follow up with the provider listed on their discharge instructions was discussed. They were encouraged to return to [facility], or the nearest ED, if symptoms worsen/persist, or for any other questions/concerns. 17:04 Fingerstick Blood Sugar Ordered. EDMS 10/21 11:25 ECG/EKG was scanned into [employer] and attached to record. gb EC/18 14:16 Rate is 77 beats/min. Rhythm is regular, Normal Sinus Rhythm. QRS [place] is Normal. [place] pc interval is normal. QRS interval is normal. QT interval is normal. No Q waves. T waves are Normal. No ST changes noted. Clinical impression: Normal Sinus Rhythm. Administered Medications: 14:25 Drug: NS 0.9% 1000 ml [sodium chloride 0.9 % intravenous solution] Route: IV; Rate: kc3 bolus; Site: right antecubital; Signatures: Dispatcher [employer] EDMS Hawk Barros MD MD pc Barnhardt, Gloria, Reg Reg gb Theodora Goins, Reg Reg lg Adrian Jackson RN RN mlb1 Merary De La Fuente, PSA PSA ml4 Meghan Winn,ADALBERTO RN kc3 The chart was reviewed and I authenticate all verbal orders and agree with the evaluation and treatment provided.Corrections: (The following items were deleted from the chart) 15:38 11:05 Home Meds: Abilify 5 mg Oral tab 1 tab once daily; mlb1 kc3 15:38 11:05 Home Meds: lorazepam 1 mg Oral tab 1 tab every 6 hours; as needed; mlb1 kc3 Attachments: 15:04 [facility] Payment Agreement 10/21 11:25 ECG/EKG Chart Complete [facility]
== END 2016-10-20 17:03 | disposition home or self-care (01) ==
LOC: M ED 10:57
DX: F43.22 Adjustment disorder with anxiety (principal); F41.0 Panic disorder [episodic paroxysmal anxiety]; Z79.899 Other long term (current) drug therapy; F17.210 Nicotine dependence, cigarettes, uncomplicated
CPT/HCPCS: 36415; 80048; 80076; 80306; 84443; 85027; 93005; 93041; 99284; G0480

== ENCOUNTER → 2017-12-20 | Outpatient (REF) | LOC: M SMT 14:24 | DX: M54.5 Low back pain (principal) ==